=== PATIENT | female | born 1965 | race Caucasian/White ===

== ENCOUNTER 2021-01-30 13:54 | Inpatient (IN) | payer MEDICARE, MEDICAID ==
[2021-01-30 14:36] LABS: Bilirubin Neg (Negative); Blood, Urine 50 (Negative); Clarity Clear (Clear); Glucose, Urine (Dipstick) Normal (Negative); Ketone, Urine Negative (Negative); Leukocyte 25 (Negative); Nitrite Negative (Negative); Protein, Urine (Dipstick) Negative (Neg-Trace); Urobilinogen Normal mg/dL (Less than 2); pH, Urine 6.5 (5.0-9.0)
[2021-01-30] MEDS ORDERED: Ketorolac Tromethamine 30 MG/ML VIAL ONE (14:40)
[2021-01-30] MEDS ORDERED: cefTRIAXone\\ROCEPHIN 2 GM VIAL ONE (14:40)
[2021-01-30 14:46] LABS: Bacteria/HPF Rare-Few HPF (None Seen); Mucous/LPF Rare LPF (<2+); Squamous Epithelial 0-3 HPF (0-3)
[2021-01-30 14:47] LABS: Calcium Oxalate Crystals Rare HPF (None Seen)
[2021-01-30 14:53] LABS: #Monocytes 0.7 10x3/uL (0.0-1.1); #Neutrophils 6.5 10x3/uL (1.5-8.4); %Basophils 0.4 % (0.0-2.0); %Eosinophils 0.4 % (0.0-6.0); %Lymphocytes 6.5 % (18.0-47.0); %Monocytes 8.9 % (0.0-10.0); %Neutrophils 83.4 % (40.0-75.0); Hemoglobin 12.4 g/dL (12.0-15.5); Mean Corpuscular HGB CONC 33.7 g/dL (32.0-36.0); Mean Corpuscular Hemoglobin 31.2 pg (27.0-33.0); Mean Corpuscular Volume 92.7 fl (81.6-98.3); Mean Platelet Volume 12.9 fl (7.4-10.4); Platelet Count 77 10x3/uL (150-450); RBC Distribution Width 13.5 % (11.5-14.5); Red Blood Cell (RBC) Count 3.97 10x6/uL (3.90-5.03); White Blood Cell (WBC) Count 7.8 10x3/uL (3.5-10.5)
[2021-01-30 15:03] LABS: ALT (SGPT) 35 U/L (8-55); AST (SGOT) 31 U/L (5-34); Albumin 3.7 g/dL (3.5-5.0); Alkaline Phosphatase 101 U/L (40-110); Anion Gap 10 mmol/L (10-20); BUN (Urea Nitrogen) 7 mg/dL (9.8-20.1); Bilirubin, Total 0.9 mg/dL (0.2-1.2); CK (CPK) 57 U/L (29-168); Calc. Creatinine Clearance 0 mL/min (70-130); Calcium 9.6 mg/dL (7.8-10.44); Carbon Dioxide 25 mmol/L (22-29); Chloride 106 mmol/L (98-107); Globulin 2.9 g/dL (2.4-3.5); Glucose 108 mg/dL (70-105); Potassium 3.4 mmol/L (3.5-5.1); Protein, Total 6.6 g/dL (6.0-8.3); Sodium 138 mmol/L (136-145)
[2021-01-30 15:10] LABS: Platelet Morphology Comment Appears Decreased; RBC Morphology Normal
[2021-01-30 15:12] LABS: SARS-CoV-2 NAA Rapid Test Not Detected (NotDetected)
[2021-01-30] MEDS ORDERED: methylPREDNISolone Sod Succ 1 GM in Sodium Chloride 0.9% 100 ML IVPB SCH ×2 (16:00→19:00)
[2021-01-30] MEDS ORDERED: Calcium Carbonate 500 MG ChewTAB PO PRN (16:43)
[2021-01-30] MEDS ORDERED: Ondansetron ODT 4 MG TAB PO PRN (16:43)
[2021-01-30] MEDS ORDERED: Acetaminophen 325 MG TAB PO PRN (16:43)
[2021-01-30 16:58] LABS: Magnesium 1.6 mg/dL (1.6-2.6)
[2021-01-30 17:28] LABS: Lactic Acid 1.1 mmol/L (0.5-2.2)
[2021-01-30] MEDS ORDERED: Potassium Chloride 20 MEQ TAB PO SCH (18:30)
[2021-01-30 18:46] VITALS: BMI 45.6
[2021-01-30] MEDS ORDERED: FLU VACC QS2021-22(6MOS UP)/PF 60 MCG/0.5 ML SYRINGE IM ONE (20:30)
[2021-01-30] MEDS ORDERED: Baclofen 10 MG TAB PO SCH (20:45)
[2021-01-30] MEDS ORDERED: Nortriptyline HCl 25 MG CAP PO SCH (20:45)
[2021-01-30] MEDS: Escitalopram Oxalate 20 mg Tablet PO SCH (20:45)
[2021-01-30] MEDS ORDERED: Ibuprofen 400 MG TAB PO SCH (23:15)
[2021-01-31 05:27] LABS: #Neutrophils 6.2 10x3/uL (1.5-8.4); %Basophils 0.1 % (0.0-2.0); %Lymphocytes 6.4 % (18.0-47.0); %Monocytes 0.6 % (0.0-10.0); %Neutrophils 92.5 % (40.0-75.0); Hemoglobin 12.9 g/dL (12.0-15.5); Mean Corpuscular HGB CONC 33.8 g/dL (32.0-36.0); Mean Corpuscular Hemoglobin 31.2 pg (27.0-33.0); Mean Corpuscular Volume 92.3 fl (81.6-98.3); Mean Platelet Volume 12.7 fl (7.4-10.4); Platelet Count 85 10x3/uL (150-450); RBC Distribution Width 13.5 % (11.5-14.5); Red Blood Cell (RBC) Count 4.14 10x6/uL (3.90-5.03); White Blood Cell (WBC) Count 6.7 10x3/uL (3.5-10.5)
[2021-01-31 05:31] LABS: Anion Gap 12 mmol/L (10-20); BUN (Urea Nitrogen) 9 mg/dL (9.8-20.1); Calc. Creatinine Clearance 173 mL/min (70-130); Calcium 9.4 mg/dL (7.8-10.44); Carbon Dioxide 22 mmol/L (22-29); Chloride 109 mmol/L (98-107); Glucose 236 mg/dL (70-105); Sodium 139 mmol/L (136-145)
[2021-01-31] MEDS ORDERED: Magnesium 2 GM/50 ML 2 GM in Premix Bag 1 BAG IVPB SCH (09:00)
[2021-01-31] MEDS: Baclofen 10 MG TAB PO SCH ×2 (10:09→22:40)
[2021-01-31] MEDS: clonazePAM 1 MG TAB PO SCH ×2 (10:10→22:40)
[2021-01-31] MEDS ORDERED: Loratadine 10 MG TAB PO PRN (11:38)
[2021-01-31] MEDS ORDERED: Betamethasone 0.1% Cream 15 GM TUBE TOP PRN (12:11)
[2021-01-31] MEDS ORDERED: Morphine ER 30 MG TAB PO PRN (12:15)
[2021-01-31] MEDS ORDERED: Simethicone Chewable 80 MG TAB PO PRN (12:24)
[2021-01-31] MEDS ORDERED: methylPREDNISolone Sod Succ 1 GM, Admixture Fee 1 EACH in Sodium Chloride 0.9% 250 ML 2... IVPB SCH (16:00)
[2021-01-31] MEDS: cefTRIAXone\\ROCEPHIN 2 GM in Sodium Chloride 0.9% 100 ML IVPB SCH (17:47)
[2021-01-31] MEDS: Nortriptyline HCl 25 MG CAP PO SCH (22:39)
[2021-01-31] MEDS: Oxybutynin 5 MG TAB PO SCH (22:40)
[2021-01-31] MEDS: Escitalopram Oxalate 20 mg Tablet PO SCH (22:40)
[2021-01-31] MEDS: Senokot S 8.6-50 MG TAB PO PRN (22:59)
[2021-01-31] MEDS: Fluticasone Propionate Nasal Spray 16 gm Bottle NASAL SCH (23:01)
[2021-02-01 05:36] LABS: #Monocytes 0.1 10x3/uL (0.0-1.1); #Neutrophils 3.9 10x3/uL (1.5-8.4); %Monocytes 2.9 % (0.0-10.0); %Neutrophils 87.2 % (40.0-75.0); Hemoglobin 12.7 g/dL (12.0-15.5); Mean Corpuscular HGB CONC 32.6 g/dL (32.0-36.0); Mean Corpuscular Hemoglobin 31.2 pg (27.0-33.0); Mean Corpuscular Volume 95.8 fl (81.6-98.3); Mean Platelet Volume 13.6 fl (7.4-10.4); Platelet Count 84 10x3/uL (150-450); RBC Distribution Width 13.4 % (11.5-14.5); Red Blood Cell (RBC) Count 4.07 10x6/uL (3.90-5.03); White Blood Cell (WBC) Count 4.5 10x3/uL (3.5-10.5)
[2021-02-01 05:45] LABS: Anion Gap 14 mmol/L (10-20); BUN (Urea Nitrogen) 11 mg/dL (9.8-20.1); Calc. Creatinine Clearance 156 mL/min (70-130); Calcium 9.7 mg/dL (7.8-10.44); Carbon Dioxide 23 mmol/L (22-29); Chloride 109 mmol/L (98-107); Glucose 299 mg/dL (70-105); Magnesium 2.1 mg/dL (1.6-2.6); Potassium 4.2 mmol/L (3.5-5.1); Sodium 142 mmol/L (136-145)
[2021-02-01] MEDS: Fluticasone Propionate Nasal Spray 16 gm Bottle NASAL SCH ×2 (09:46→21:31)
[2021-02-01] MEDS: clonazePAM 1 MG TAB PO SCH ×2 (09:47→21:30)
[2021-02-01] MEDS: Magnesium Oxide 250 MG TAB PO SCH (09:47)
[2021-02-01] MEDS: Baclofen 10 MG TAB PO SCH ×2 (09:47→21:25)
[2021-02-01] MEDS: Oxybutynin 5 MG TAB PO SCH ×2 (09:49→21:26)
[2021-02-01] MEDS: Preparation H Ointment 57 gram tube RC SCH (16:12)
[2021-02-01] MEDS: cefTRIAXone\\ROCEPHIN 2 GM in Sodium Chloride 0.9% 100 ML IVPB SCH (16:30)
[2021-02-01] MEDS: Senokot S 8.6-50 MG TAB PO PRN (21:25)
[2021-02-01] MEDS: Escitalopram Oxalate 20 mg Tablet PO SCH (21:26)
[2021-02-01] MEDS: Nortriptyline HCl 25 MG CAP PO SCH (21:29)
[2021-02-02 05:11] LABS: Anion Gap 13 mmol/L (10-20); BUN (Urea Nitrogen) 16 mg/dL (9.8-20.1); Calc. Creatinine Clearance 158 mL/min (70-130); Calcium 9.5 mg/dL (7.8-10.44); Carbon Dioxide 22 mmol/L (22-29); Chloride 110 mmol/L (98-107); Glucose 243 mg/dL (70-105); Potassium 4.4 mmol/L (3.5-5.1); Sodium 141 mmol/L (136-145)
[2021-02-02 07:21] LABS: #Monocytes 0.3 10x3/uL (0.0-1.1); #Neutrophils 4.8 10x3/uL (1.5-8.4); %Lymphocytes 8.8 % (18.0-47.0); %Neutrophils 84.9 % (40.0-75.0); Hemoglobin 12.4 g/dL (12.0-15.5); Mean Corpuscular HGB CONC 34.1 g/dL (32.0-36.0); Mean Corpuscular Hemoglobin 31.2 pg (27.0-33.0); Mean Corpuscular Volume 91.7 fl (81.6-98.3); Platelet Count 89 10x3/uL (150-450); RBC Distribution Width 13.4 % (11.5-14.5); Red Blood Cell (RBC) Count 3.97 10x6/uL (3.90-5.03); White Blood Cell (WBC) Count 5.6 10x3/uL (3.5-10.5)
[2021-02-02] MEDS: clonazePAM 1 MG TAB PO SCH (09:16)
[2021-02-02] MEDS: Oxybutynin 5 MG TAB PO SCH (09:17)
[2021-02-02] MEDS: Baclofen 10 MG TAB PO SCH (09:17)
[2021-02-02] MEDS: Magnesium Oxide 250 MG TAB PO SCH (09:17)
[2021-02-02] MEDS: Fluticasone Propionate Nasal Spray 16 gm Bottle NASAL SCH (09:17)
[2021-02-02] MEDS: Preparation H Ointment 57 gram tube RC SCH (12:27)
[2021-02-02 12:41] VITALS: TEMP 97.4
[2021-02-02 12:50] VITALS: BP 137/74
== END 2021-02-02 15:25 | disposition home health service (06) | DRG 58 ==
LOC: CSHERS 13:54 → CSHTELE 18:09
PROVIDERS: ADMIT Family Medicine; ATTEND Nurse Practitioner Family
DX: G35 Multiple sclerosis (principal); A41.9 Sepsis, unspecified organism; N39.0 Urinary tract infection, site not specified; Z68.42 Body mass index [BMI] 45.0-49.9, adult; E87.6 Hypokalemia; Z20.822 Contact with and (suspected) exposure to COVID-19; F41.9 Anxiety disorder, unspecified; S30.810A Abrasion of lower back and pelvis, initial encounter; W18.30XA Fall on same level, unspecified, initial encounter; D69.6 Thrombocytopenia, unspecified; R51.9 Headache, unspecified; E66.01 Morbid (severe) obesity due to excess calories; M62.838 Other muscle spasm; K21.9 Gastro-esophageal reflux disease without esophagitis; I10 Essential (primary) hypertension; G47.33 Obstructive sleep apnea (adult) (pediatric); Y92.009 Unspecified place in unspecified non-institutional (private) residence as the place of occurrence of the external cause; Z91.040 Latex allergy status; Z74.01 Bed confinement status; Z88.8 Allergy status to other drugs, medicaments and biological substances; Z88.0 Allergy status to penicillin; Z79.899 Other long term (current) drug therapy; Z90.49 Acquired absence of other specified parts of digestive tract; Z90.710 Acquired absence of both cervix and uterus
CPT/HCPCS: 36415; 70450; 70553; 71045; 72040; 80048; 80053; 81003; 81015; 82550; 83605; 83735; 84443; 85025; 87040; 87086; 94660; 94760; J0696; J1885; J2930; J3370; J3475; J3490; J7050; U0002

== ENCOUNTER 2022-04-13 12:48 | Outpatient (CLI) | payer OTHER, MEDICAID ==
[~2022-04-13 12:48] MED LIST: Magnevist 469MG/ML 20 ML VIAL ONE
== END 2022-04-13 12:49 | disposition home or self-care (01) ==
LOC: CSHMRI 12:48
PROVIDERS: ATTEND Psychiatry & Neurology Neurology
DX: G35 Multiple sclerosis (principal); Q28.2 Arteriovenous malformation of cerebral vessels
CPT/HCPCS: 70553

== ENCOUNTER 2022-10-24 12:36 | Outpatient (CLI) | payer OTHER, MEDICAID | END 2022-10-24 12:37 | disposition home or self-care (01) | LOC: CSHMRI 12:36 | PROVIDERS: ATTEND Psychiatry & Neurology Neurology | DX: G35 Multiple sclerosis (principal); M47.812 Spondylosis without myelopathy or radiculopathy, cervical region; M47.814 Spondylosis without myelopathy or radiculopathy, thoracic region | CPT/HCPCS: 72156; 72157 ==